=== PATIENT | female | born 1935 | race Caucasian/White ===

== ENCOUNTER → 2018-08-30 09:02 | Outpatient (CLI) | payer MEDICARE, SELFPAY ==
[2018-08-30 10:40] LABS: Calcium 9.6 mg/dL (8.4-10.2); Phosphorous 3.5 mg/dL (2.8-4.1)
[2018-08-30 11:05] LABS: Vitamin D 25 Hydroxy (D3) 40.2 ng/mL (30.0-100.0)
[2018-09-03 14:10] LABS: Parathyroid Hormone Int 52 pg/mL (14-64)
== END ==
PROVIDERS: Family Provider Physician Assistant; PCP Physician Assistant; Visit Provider Nurse Practitioner
DX: M81.0 Age-related osteoporosis without current pathological fracture (principal)
CPT/HCPCS: 36415; 82306; 82310; 82523; 83970; 84100

== ENCOUNTER → 2019-06-30 08:46 | Outpatient (CLI) | payer MEDICARE, SELFPAY ==
--- NOTE | 2019-06-30 | DI.RAD.S_ITS ---
PROCEDURE: XR CHEST 2V INDICATIONS: Solitary pulmonary nodule TECHNIQUE: 2 views of the chest were acquired. COMPARISON: [facility], CT, PE STUDY (CTA CHEST), 10/09/2016, 13:53. [facility], CT, HEAD WITHOUT CONTRAST, 10/09/2016, 13:48. [facility], CR, CHEST 1 VIEW, 06/14/2017, 13:14. FINDINGS: Surgical changes and devices: Mammoplasty implants are incidentally noted. Lungs and pleura: No focal infiltrates are seen. No pulmonary nodules are seen on these plain films. No pleural effusions or pneumothorax. The lungs are hyperexpanded, with flattening of the hemidiaphragms seen. Mediastinum: The cardiac contours are within normal limits. The aorta demonstrates calcification and tortuosity. Bones and chest wall: No suspicious bony abnormalities. Age-appropriate bony degenerative changes are seen. Accentuated thoracic kyphosis is seen. Soft tissues appear unremarkable. IMPRESSION: Nodules are not seen on this plain film study. For further evaluation for this patient's nodules that were previously seen by CT, please consider a followup CT examination. Dictated by: Brandon Forman M.D. on 06/30/2019 at 10:59 Approved by: Brandon Forman M.D. on 06/30/2019 at 11:00
== END ==
PROVIDERS: PCP Internal Medicine; Visit Provider Internal Medicine
DX: R91.1 Solitary pulmonary nodule (principal)
CPT/HCPCS: 71046

== ENCOUNTER → 2019-08-15 07:11 | Outpatient (CLI) | payer MEDICARE, SELFPAY ==
--- NOTE | 2019-08-15 | DI.CT.S_ITS ---
PROCEDURE: CT CHEST WO CON INDICATIONS: chronic cough TECHNIQUE: Noncontrast 5 mm thick sections acquired from the pulmonary apices to the posterior costophrenic angles. 1 mm lung window, 5 mm thick coronal and sagittal and 7 mm axial MIP reformats were then acquired. For radiation dose reduction, the following was used: automated exposure control, adjustment of mA and/or kV according to patient size. COMPARISON: [facility], [place], PET/CT SKULL BASE TO MID THIGH, 11/10/2016, 10:01. [facility], CT, PE STUDY (CTA CHEST), 10/09/2016, 13:53. [facility], CT, THORAX WITHOUT CONTRAST, 10/20/2016, 8:20. FINDINGS: Image quality: Excellent. Lungs and pleura: No acute consolidation. Bilateral apical medial scarring. 2 mm nodule on image 135 series 3, could be sequela of prior granulomatous disease although technically indeterminate and could be further assessed with 12 month interval noncontrast chest CT as clinically warranted. Additional 2 mm nodule on image 183 series 3 is unchanged Elsewhere, scattered scarring atelectasis/scarring. No pleural effusions or pneumothorax. Central and peripheral airways are patent and normal in caliber. Mediastinum: Heart size is normal. Mild pericardial effusion. No mediastinal adenopathy by size criteria. Thoracic aorta and central pulmonary arteries are normal in size. Esophagus is normal in caliber. No hiatal hernia. T4 and T5 mild compression fractures, chronic at the T4 level and age-indeterminate at the T5 level. Lower cervical spondylosis. Bilateral breast prostheses. Hypodense lesion present within the lateral segment of the liver, as well as on image 58 series 2 in the central liver, grossly unchanged and may be cysts or hemangioma IMPRESSION: No acute consolidation. Age-indeterminate T5 mild compression fracture. Additional chronic and incidental findings as above. Dictated by: Stan Soares M.D. on 08/15/2019 at 9:10 Approved by: Stan Soares M.D. on 08/15/2019 at 9:21
== END ==
PROVIDERS: PCP Internal Medicine; Visit Provider Internal Medicine
DX: R05 Cough (principal); R91.1 Solitary pulmonary nodule; I31.3 Pericardial effusion (noninflammatory); M47.812 Spondylosis without myelopathy or radiculopathy, cervical region; M48.54XS Collapsed vertebra, not elsewhere classified, thoracic region, sequela of fracture; Z98.82 Breast implant status
CPT/HCPCS: 71250

== ENCOUNTER → 2020-01-09 07:05 | Outpatient (CLI) | payer MEDICARE, SELFPAY ==
[2020-01-09 08:02] LABS: BUN Creatinine Ratio 29.2 (6-22); Blood Urea Nitrogen 26 mg/dL (7-17); Estimated Glomerular Filt Rate > 60.0 mL/min (>60)
--- NOTE | 2020-01-09 09:42 | DI.CT.S_ITS ---
PROCEDURE: CT ABDOMEN PELVIS W CON INDICATIONS: Chronic kidney disease TECHNIQUE: After the administration of oral and intravenous contrast, 5 mm thick sections acquired from the diaphragms to the symphysis. 5 mm thick coronal and sagittal reformats were performed. For radiation dose reduction, the following was used: automated exposure control, adjustment of mA and/or kV according to patient size. COMPARISON: [facility], CT, CT CHEST WO CON, 08/15/2019, 7:24. FINDINGS: Image quality: Excellent. ABDOMEN: Lung bases: Lung bases are clear. Heart size is normal. Solid organs: Liver is enlarged measuring 15.2 cm in craniocaudal dimension. Multiple low attenuation hepatic foci are present, with the largest in the left lobe measuring 18 mm, Hounsfield units 13. Gallbladder is unremarkable. Biliary system is non-dilated. Pancreas enhances normally. Spleen is normal in size and enhancement. No adrenal nodules. Kidneys are normal in size and enhancement, without hydronephrosis. 7 mm left renal cyst. Peritoneum and bowel: Stomach, small bowel, and colon loops are normal in caliber and wall thickness. No free fluid or air. Nodes and vessels: No retroperitoneal or mesenteric adenopathy. Aorta and inferior vena cava are normal in caliber. Miscellaneous: No ventral hernias. PELVIS: Genitourinary: Bladder wall thickness is normal. Miscellaneous: No inguinal hernias or adenopathy. Bones: No suspicious bony lesions. No vertebral body compression fractures. IMPRESSION: 1. Mild hepatomegaly. Scattered low attenuation foci with a largest most consistent with cysts. Smaller lesions are too small to definitively characterize. Dictated by: Monica Lala M.D. on 01/09/2020 at 9:33 Approved by: Monica Lala M.D. on 01/09/2020 at 9:43
== END ==
PROVIDERS: PCP Internal Medicine; Referring Provider Internal Medicine; Visit Provider Internal Medicine
DX: N18.3 Chronic kidney disease, stage 3 (moderate) (principal)
CPT/HCPCS: 36415; 74177; 82565; 84520; Q9967

== ENCOUNTER → 2020-02-12 10:02 | Outpatient (CLI) | payer MEDICARE, SELFPAY ==
--- NOTE | 2020-02-12 10:05 | DI.US.S_ITS ---
PROCEDURE: US ABDOMEN COMPLETE INDICATIONS: HEPATOMEGALLY TECHNIQUE: Real-time scanning was performed of the abdominal and retroperitoneal organs, with image documentation. COMPARISON: [facility], CT, CT ABDOMEN PELVIS W CON, 01/09/2020, 9:09. FINDINGS: Liver: Liver is normal in size and homogeneous in echotexture. There is a septated cyst in the anterior right hepatic lobe measuring 0.9 x 1.0 x 0.9 cm. A 1.7 x 1.4 x 1.8 cm simple cyst is noted in the left hepatic lobe. Gallbladder: No gallstones. No gallbladder wall thickening, pericholecystic fluid or sonographic Bravo's sign. Biliary ducts: Intrahepatic bile ducts are non-dilated. Extrahepatic bile duct caliber measures 2.5 mm. Normal is 6-7 mm or less in diameter, or 10 mm or less post-cholecystectomy. Pancreas: Visualized portions of the pancreas are sonographically normal. Spleen: Spleen is normal in size and homogeneous in echotexture. Kidneys: Kidneys are normal in size and echotexture. Right kidney measures 9.0 cm long; left kidney measures 9.8 cm long. No hydronephrosis or nephrolithiasis. No solid masses. Aorta: Visualized aorta is normal in caliber at less than 3 cm. Iliacs: Proximal common iliac arteries are normal in caliber at less than 2.5 cm. IVC: Intrahepatic inferior vena cava is patent. Miscellaneous: No free abdominal fluid. IMPRESSION: 1. Liver is normal in size. 2. A couple of cysts in liver. Dictated by: Jean Paul Bonilla M.D. on 02/12/2020 at 12:00 Approved by: Jean Paul Bonilla M.D. on 02/12/2020 at 12:03
== END ==
PROVIDERS: PCP Internal Medicine; Referring Provider Internal Medicine; Visit Provider Internal Medicine
DX: R16.0 Hepatomegaly, not elsewhere classified (principal); K76.89 Other specified diseases of liver
CPT/HCPCS: 76700

== ENCOUNTER → 2020-02-26 14:41 | Outpatient (CLI) | payer MEDICARE, SELFPAY ==
[2020-02-28 09:07] LABS: COVID19 Sendout Not Detected (Not Detected)
== END ==
PROVIDERS: PCP Internal Medicine; Visit Provider Family Medicine
DX: R43.2 Parageusia (principal); Z20.828 Contact with and (suspected) exposure to other viral communicable diseases
CPT/HCPCS: 87635

== ENCOUNTER → 2020-03-29 13:05 | Outpatient (CLI) | payer MEDICARE, SELFPAY ==
--- NOTE | 2020-03-29 13:12 | DI.RAD.S_ITS ---
PROCEDURE: XR HAND RT MIN 3V INDICATIONS: RT HAND PAIN TECHNIQUE: 3 views of the hand(s) acquired. COMPARISON: None. FINDINGS: Bones: No fractures or dislocations. Carpal bones are normally aligned. No suspicious bony lesions. Scattered degenerative subchondral sclerosis and spurring. First CMC and triscaphe joint degeneration. Few scattered nonspecific marginal lucency seen at the DIP joints diffusely, as well as the first MCP joint. Soft tissues: No suspicious soft tissue calcifications. IMPRESSION: Mild degenerative changes. No fracture. Dictated by: Stan Soares M.D. on 03/29/2020 at 14:55 Approved by: Stan Soares M.D. on 03/29/2020 at 14:58
[2020-03-29 14:41] LABS: TSH w/ Reflex to FT4 2.83 uIU/mL (0.47-4.68)
== END ==
PROVIDERS: PCP Internal Medicine; Referring Provider Internal Medicine; Visit Provider Internal Medicine
DX: E03.9 Hypothyroidism, unspecified (principal); M79.644 Pain in right finger(s)
CPT/HCPCS: 36415; 73130; 84443

== ENCOUNTER → 2020-08-24 19:20 | Outpatient (ROUT) | payer MEDICARE, SELFPAY ==
[2020-08-24 19:41] LABS: Hematocrit 39.4 % (36-46); Hemoglobin 13.2 g/dL (12.0-16.0); Mean Corpuscular HGB Conc 33.5 % (30-36); Mean Corpuscular Hemoglobin 31.8 PG (26-34); Platelet Count 313 X10^3/uL (150-400); Red Blood Cell Count 4.14 X10^6/uL (4.0-5.2); Red Cell Distribution Width 13.9 % (11.6-14.8); White Blood Cell Count 7.1 X10^3/uL (4.5-11.0)
[2020-08-24 19:49] LABS: HEMOLYSIS < 15 (0-50); Iron 77 ug/dL (37-170)
[2020-08-24 19:53] LABS: Alanine Aminotransferase 16 IU/L (<35); Albumin 4.2 g/dL (3.5-5.0); Albumin Globulin Ratio 1.6 (1.0-2.8); Alkaline Phosphatase 80 U/L (38-126); Aspartate Aminotransferase 32 IU/L (14-36); BUN Creatinine Ratio 20.3 (6-22); Bilirubin Total 1.2 mg/dL (0.2-1.3); Blood Urea Nitrogen 29 mg/dL (7-17); Calcium 9.2 mg/dL (8.4-10.2); Carbon Dioxide 29 mmol/L (22-32); Chloride 104 mmol/L (98-107); Estimated Glomerular Filt Rate 34.9 mL/min (>60); Globulin 2.6 g/dL (1.7-4.1); Glucose 99 mg/dL (80-110); Lipase 211 U/L (23-300); Sodium 137 mmol/L (137-145); Total Protein 6.8 g/dL (6.3-8.2)
[2020-08-24 19:57] LABS: C-Reactive Protein Quant < 0.5 mg/dL (<1.0); HEMOLYSIS 62 (0-50); Potassium 5.5 mmol/L (3.4-5.1)
[2020-08-24 20:00] LABS: Percent Iron Saturation 25 % (15-50); Total Iron Binding Capacity 304 ug/dL (265-497); Transferrin 234 mg/dL (206-381)
[2020-08-24 20:03] LABS: Neutrophils Absolute Manual 4544 /uL (3000-5900); Total Cells Counted 100
[2020-08-24 20:05] LABS: Reactive Lymphocytes 1+
[2020-08-24 20:06] LABS: Platelet Estimate Adequate on smear; RBC Morphology Normal Morphology
[2020-08-24 20:16] LABS: Erythrocyte Sedimentation Rate 5 MM/HR (0-20)
[2020-08-24 20:19] LABS: TSH w/ Reflex to FT4 2.44 uIU/mL (0.47-4.68)
[2020-08-24 20:24] LABS: Ferritin 88 ng/mL (11-264)
== END ==
PROVIDERS: PCP Internal Medicine; Visit Provider Internal Medicine
DX: R63.4 Abnormal weight loss (principal); R19.5 Other fecal abnormalities
CPT/HCPCS: 80053; 82728; 83540; 83550; 83690; 84443; 85025; 85651; 86140

== ENCOUNTER → 2020-08-30 11:04 | Outpatient (CLI) | payer MEDICARE, SELFPAY ==
[2020-08-30 12:18] LABS: Blood Urea Nitrogen 30 mg/dL (7-17); Carbon Dioxide 28 mmol/L (22-32); Chloride 104 mmol/L (98-107); Estimated Glomerular Filt Rate 58.8 mL/min (>60); Glucose 110 mg/dL (80-110); HEMOLYSIS < 15 (0-50); Potassium 4.3 mmol/L (3.4-5.1); Sodium 135 mmol/L (137-145)
== END ==
PROVIDERS: PCP Internal Medicine; Referring Provider Internal Medicine; Visit Provider Internal Medicine
DX: N18.32 Chronic kidney disease, stage 3b (principal)
CPT/HCPCS: 36415; 80048

== ENCOUNTER → 2020-09-24 14:52 | Outpatient (CLI) | payer MEDICARE, SELFPAY ==
[2020-09-24 15:45] LABS: BUN Creatinine Ratio 21.5 (6-22); Blood Urea Nitrogen 23 mg/dL (7-17); Calcium 9.3 mg/dL (8.4-10.2); Carbon Dioxide 29 mmol/L (22-32); Chloride 101 mmol/L (98-107); Estimated Glomerular Filt Rate 48.6 mL/min (>60); Glucose 111 mg/dL (80-110); HEMOLYSIS < 15 (0-50); Potassium 4.4 mmol/L (3.4-5.1); Sodium 135 mmol/L (137-145)
== END ==
PROVIDERS: PCP Internal Medicine; Referring Provider Internal Medicine; Visit Provider Internal Medicine
DX: R19.5 Other fecal abnormalities (principal)
CPT/HCPCS: 36415; 80048

== ENCOUNTER → 2020-09-27 10:52 | Outpatient (CLI) | payer MEDICARE, SELFPAY ==
--- NOTE | 2020-09-27 12:04 | DI.CT.S_ITS ---
PROCEDURE: CT ABDOMEN PELVIS W CON INDICATIONS: Other fecal abnormalities TECHNIQUE: After the administration of oral and intravenous contrast, 5 mm thick sections acquired from the diaphragms to the symphysis. 5 mm thick coronal and sagittal reformats were performed. For radiation dose reduction, the following was used: automated exposure control, adjustment of mA and/or kV according to patient size. COMPARISON: [facility], CT, CT ABDOMEN PELVIS W CON, 01/09/2020, 9:09. FINDINGS: Image quality: Excellent. ABDOMEN: Lung bases: Lung bases are clear. Heart size is normal. Hepatic steatosis. Subcentimeter hepatic foci are statistically cysts or hemangiomas, although technically too small to characterize accurately and therefore nonspecific. The gallbladder is grossly unremarkable. Biliary system is non-dilated. Pancreas enhances normally. Spleen is normal in size and enhancement. No adrenal nodules. Subcentimeter renal foci, statistically cysts, although technically too small to characterize accurately and therefore nonspecific. Scattered air-fluid levels. There are numerous fluid filled small bowel loops. No free fluid or air. Nodes and vessels: No retroperitoneal or mesenteric adenopathy. Aorta and inferior vena cava are normal in caliber. Scattered vascular calcifications seen in the aorta. Miscellaneous: No ventral hernias. PELVIS: Genitourinary: Bladder wall thickness is normal. Miscellaneous: No inguinal hernias or adenopathy. Bones: No vertebral body compression fracture. Spondylytic changes and facet arthropathy. IMPRESSION: Scattered air-fluid levels and fluid-filled small bowel loops raising possibility of a low-grade enteritis. Moderate stool Hepatic steatosis Elsewhere, no acute abnormality Dictated by: Stan Soares M.D. on 09/27/2020 at 14:45 Approved by: Stan Soares M.D. on 09/27/2020 at 14:52
== END ==
PROVIDERS: PCP Internal Medicine; Referring Provider Internal Medicine; Visit Provider Internal Medicine
DX: R19.5 Other fecal abnormalities (principal); K76.0 Fatty (change of) liver, not elsewhere classified
CPT/HCPCS: 74177; Q9967

== ENCOUNTER → 2020-10-29 18:47 | Outpatient (ROUT) | payer MEDICARE, SELFPAY ==
[2020-10-29 19:17] LABS: BUN Creatinine Ratio 29.5 (6-22); Blood Urea Nitrogen 26 mg/dL (7-17); Calcium 9.2 mg/dL (8.4-10.2); Carbon Dioxide 29 mmol/L (22-32); Chloride 103 mmol/L (98-107); Estimated Glomerular Filt Rate > 60.0 mL/min (>60); Glucose 79 mg/dL (80-110); HEMOLYSIS < 15 (0-50); Potassium 4.6 mmol/L (3.4-5.1); Sodium 134 mmol/L (137-145)
== END ==
PROVIDERS: PCP Internal Medicine; Visit Provider Internal Medicine
DX: R94.4 Abnormal results of kidney function studies (principal)
CPT/HCPCS: 80048

== ENCOUNTER → 2021-01-18 07:57 | Outpatient (CLI) | payer MEDICARE, SELFPAY ==
--- NOTE | 2021-01-18 08:28 | DI.CT.S_ITS ---
PROCEDURE: CT CHEST WO CON INDICATIONS: Cough TECHNIQUE: Noncontrast 5 mm thick sections acquired from the pulmonary apices to the posterior costophrenic angles. 1 mm lung window, 5 mm thick coronal and sagittal and 7 mm axial MIP reformats were then acquired. For radiation dose reduction, the following was used: automated exposure control, adjustment of mA and/or kV according to patient size. COMPARISON: [facility], CT, CT CHEST WO CON, 08/15/2019, 7:24. FINDINGS: Image quality: Excellent. Lungs and pleura: Biapical fibrotic changes and mild upper lobe centrilobular emphysematous change. Traction bronchiectasis in the suprahilar regions bilaterally. Moderate lingular, right middle, and lower lobe bronchiectasis. No significant bronchial wall thickening. Central airways patent. Mild bibasilar interstitial thickening and minor reticulation. No acute consolidations. There is a scar-like nodule centrally in the right upper lobe near the apex (3/32), stable compared to the prior study. 2 mm anterior right upper lobe nodule (3/146) is stable. No new suspicious nodules or masses. No pleural effusions. Mediastinum: Heart size is normal. Mild coronary artery calcification. No pericardial effusion. No mediastinal adenopathy by size criteria. Thoracic aorta and central pulmonary arteries are normal in size. Esophagus is normal in caliber. No hiatal hernia. Bones and chest wall: Peripherally calcified breast implants. No suspicious bony lesions. There are chronic and stable compression deformities of T1, T4 and T5 and superior endplate scalloping of T2. No axillary or supraclavicular adenopathy by size criteria. Thyroid gland is unremarkable . Abdomen: Small left lobe hepatic cyst. Visualized upper abdominal solid organs and bowel loops appear normal in the absence of contrast. IMPRESSION: 1. Bilateral upper lobe fibrosis, emphysematous changes, and bronchiectasis present to a fairly stable degree compared to the prior study. Etiology acute cough is not identified. 2. There are no acute changes or new suspicious nodules. 3. Chronic upper thoracic compression fractures. Dictated by: Sunita Mon M.D. on 01/18/2021 at 9:37 Approved by: Sunita Mon M.D. on 01/18/2021 at 9:52
== END ==
PROVIDERS: PCP Internal Medicine; Referring Provider Internal Medicine; Visit Provider Internal Medicine
DX: R05 Cough (principal); J84.10 Pulmonary fibrosis, unspecified; M48.54XA Collapsed vertebra, not elsewhere classified, thoracic region, initial encounter for fracture
CPT/HCPCS: 71250

== ENCOUNTER → 2022-06-01 11:05 | Outpatient (CLI) | payer MEDICARE, SELFPAY ==
--- NOTE | 2022-06-01 | DI.MG.S_ITS ---
BILATERAL DIGITAL DIAGNOSTIC MAMMOGRAM 3D/2D WITH AUGMENTATION: 06/01/2022 CLINICAL: Right breast mass. Comparison is made to exams dated: 06/29/2021 mammogram, 06/28/2020 mammogram, and 06/26/2019 mammogram - [facility]. The tissue of both breasts is extremely dense, which lowers the sensitivity of mammography. Bilateral breast implants have capsular contraction and an irregular contour as well as poorly visualized stokes. Implants may obscure breast parenchyma, making mammographic interpretation difficult. Unable to perform implant displaced or spot views, significantly limiting evaluation. No significant masses, calcifications, or other findings are seen in either breast. IMPRESSION: INCOMPLETE: NEEDS ADDITIONAL IMAGING EVALUATION There is no abnormality seen in the right breast to correspond with the area of clinical concern at 9 o'clock. Unable to perform implant displaced or spot views, significantly limiting evaluation. Ultrasound report to follow. This exam was interpreted at Station ID: [id number]. NOTE: For mammograms, a report in lay terms will be sent to the patient. Approximately 15% of breast malignancies will not be visualized mammographically. In the management of a palpable breast mass, a negative mammogram must not discourage biopsy of a clinically suspicious lesion. Electronically Signed By: Serjio Ramey M.D. lc/:06/01/2022 13:00:14 ACR BI-RADS Category 0: Incomplete 3340F
--- NOTE | 2022-06-01 | DI.US.S_ITS ---
LIMITED ULTRASOUND OF RIGHT BREAST: 06/01/2022 CLINICAL: Palpable right breast lump 9:00 aspect. No prior exams were available for comparison. Color flow and real-time ultrasound of the right breast 9 o'clock region were performed. Diaz scale images of the real-time examination were reviewed. There is a mass in the right breast at 9 o'clock anterior depth 6 cm from the nipple. This correlates as palpated. These are probably dystrophic calcifications not seen mammographically due to technical limitations of mammography, separately described. IMPRESSION: PROBABLY BENIGN Possible dystrophic calcifications in the right breast are probably benign and correlates as palpated. Unable to confirm on mammography due to technical limitations from patient's implants. A follow-up ultrasound in 3 months is recommended to ensure stability. Followup sooner is reasonable if this area enlarges or otherwise becomes symptomatic. This exam was interpreted at Station ID: [id number]. Electronically Signed By: Serjio Ramey M.D. lc/:06/01/2022 13:05:55 letter sent: Followup Recommended Ultrasound BI-RADS: 3 Probably benign
== END ==
PROVIDERS: PCP Internal Medicine; Referring Provider Internal Medicine; Visit Provider Internal Medicine
DX: N63.13 Unspecified lump in the right breast, lower outer quadrant (principal); R92.2 Inconclusive mammogram; Z98.82 Breast implant status
CPT/HCPCS: 76642; 77066; G0279

== ENCOUNTER → 2022-09-27 09:54 | Outpatient (CLI) | payer MEDICARE, SELFPAY | PROVIDERS: PCP Internal Medicine; Referring Provider Internal Medicine; Visit Provider Internal Medicine | DX: M81.0 Age-related osteoporosis without current pathological fracture (principal); Z13.820 Encounter for screening for osteoporosis; Z78.0 Asymptomatic menopausal state | CPT/HCPCS: 77080 ==

== ENCOUNTER → 2023-06-19 | Outpatient (CLI) | payer OTHER, SELFPAY ==
--- NOTE | 2023-06-19 | DI.MG.S_ITS ---
BILATERAL DIGITAL SCREENING MAMMOGRAM 3D/2D WITH CAD WITH AUGMENTATION: 06/19/2023 CLINICAL: Routine screening. Comparison is made to exams dated: 06/01/2022 mammogram - [facility], 06/29/2021 mammogram, and 06/28/2020 mammogram - [facility]. Both breasts are extremely dense, which lowers the sensitivity of mammography (category d />75% glandular tissue). Current study was also evaluated with a Computer Aided Detection (CAD) system. Bilateral breast implants are present. No significant masses, calcifications, or other findings are seen in either breast. There has been no significant interval change. IMPRESSION: BENIGN There is no mammographic evidence of malignancy. A 1 year screening mammogram is recommended. Future imaging is recommended as follows: 09/29/2023 screening mammogram. This exam was interpreted at Station ID: [id number]. NOTE: For mammograms, a report in lay terms will be sent to the patient. Approximately 15% of breast malignancies will not be visualized mammographically. In the management of a palpable breast mass, a negative mammogram must not discourage biopsy of a clinically suspicious lesion. Electronically Signed By: David lin/lexie:06/24/2023 14:17:56 letter sent: Normal Exam ACR BI-RADS Category 2: Benign Finding(s) 3342F
== END ==
LOC: MAMMO 13:47
PROVIDERS: PCP Internal Medicine; Referring Provider Internal Medicine; Visit Provider Internal Medicine
DX: Z12.31 Encounter for screening mammogram for malignant neoplasm of breast (principal)
CPT/HCPCS: 77063; 77067

== ENCOUNTER → 2023-07-12 10:10 | Outpatient (CLI) | payer OTHER, SELFPAY ==
--- NOTE | 2023-07-12 | DI.US.S_ITS ---
PROCEDURE: US RENAL COMPLETE INDICATIONS: Chronic kidney disease, stage 3a TECHNIQUE: Real-time scanning was performed of the kidneys and bladder, with image documentation. COMPARISON: [facility], CT, CT ABDOMEN PELVIS W CON, 01/09/2020, 9:09. FINDINGS: Kidneys: Kidneys are normal in size. Right kidney measures 9.2 cm long; left kidney measures 8.6 cm long. Right renal cortical thickness is 0.3 cm; left renal cortical thickness is 0.7 cm. Renal cortical echotexture is normal. No hydronephrosis or nephrolithiasis. No suspicious solid mass lesions. Complex cystic structure within the left superior kidney measuring 1.8 cm with calcification and internal echoes. Complex cyst at the inferior pole of the left kidney with possible wall calcifications measuring 1.1 cm. Bladder: Pre-void bladder volume is 189 mL. Post-void residual is 0 mL. Pre-void images demonstrate no intraluminal masses or stones. On pre-void images, right ureteral jet is noted with color Doppler interrogation. Left ureteral jet is not seen. (Of note, ureteral jets may not be detectable in up to 25% of cases due to insufficient differences in specific gravity between ureteral and bladder urine). Miscellaneous: No free pelvic fluid. IMPRESSION: 1. Bilateral renal cortical thinning, right greater than left. No hydronephrosis or stones. 2. Complex left renal cysts as described above. Recommend follow-up ultrasound in 6 months to assess stability. Dictated by: Ever Henley M.D. on 07/12/2023 at 12:46 Approved by: Ever Henley M.D. on 07/12/2023 at 12:53
== END ==
PROVIDERS: PCP Internal Medicine; Referring Provider Internal Medicine; Visit Provider Internal Medicine
DX: N18.31 Chronic kidney disease, stage 3a (principal); N28.1 Cyst of kidney, acquired
CPT/HCPCS: 76770

== ENCOUNTER → 2024-06-26 09:10 | Outpatient (CLI) | payer OTHER, SELFPAY ==
--- NOTE | 2024-06-26 | DI.MG.S_ITS ---
BILATERAL DIGITAL SCREENING MAMMOGRAM 3D/2D WITH CAD WITH AUGMENTATION: 06/26/2024 CLINICAL: Routine screening. Comparison is made to exams dated: 06/19/2023 mammogram, 06/01/2022 mammogram - , 06/29/2021 mammogram, and 06/28/2020 mammogram - [facility]. The breasts are heterogeneously dense, which may obscure small masses (category c / 51-75% glandular tissue). Current study was also evaluated with a Computer Aided Detection (CAD) system. Bilateral breast implants are intact. No significant masses, calcifications, or other findings are seen in either breast. There has been no significant interval change. IMPRESSION: BENIGN There is no mammographic evidence of malignancy. A 1 year screening mammogram is recommended. This exam was interpreted at Station ID: [id number]. NOTE: For mammograms, a report in lay terms will be sent to the patient. Approximately 15% of breast malignancies will not be visualized mammographically. In the management of a palpable breast mass, a negative mammogram must not discourage biopsy of a clinically suspicious lesion. Electronically Signed By: Monica Juarez M.D., Ph.D. marilu/lexie:06/27/2024 09:48:17 letter sent: Normal Exam ACR BI-RADS Category 2: Benign [id number]
== END ==
LOC: MAMMO 09:11
PROVIDERS: PCP Family Medicine; Referring Provider Family Medicine; Visit Provider Family Medicine
DX: Z12.31 Encounter for screening mammogram for malignant neoplasm of breast (principal); R92.333 Mammographic heterogeneous density, bilateral breasts
CPT/HCPCS: 77063; 77067